=== PATIENT | female | born 1955 | race Caucasian/White ===

== ENCOUNTER 2016-12-29 10:17 | Emergency (ER) | payer OTHER, MEDICAID ==
[~2016-12-29] VITALS: Ht 165.1 cm; Wt 56.7 kg
[~2016-12-29 10:17] MED LIST: FLUO10TA PO
--- NOTE | 2016-12-29 10:22 | NUR ---
PT BIB RA COUGH AND CONGESTION. PLACED ON MONITOR. AWAITING MD ORDER.
--- NOTE | 2016-12-29 10:25 | NUR ---
DR ANTONIO AT BEDSIDE FOR EVAL
[2016-12-29] MEDS ORDERED: MORPHINE SULFATE INJ 4 MG/ML DISP.SYRIN ONE ×2 (10:29→11:59)
[2016-12-29] MEDS ORDERED: ALBUTEROL FS 2.5 MG/3 ML VIAL.NEB CONTNEB ONE (10:30)
[2016-12-29] MEDS ORDERED: MORPHINE SULFATE INJ 2 MG/ML DISP.SYRIN IM ONE ×2 (10:30→12:00)
[2016-12-29] MEDS ORDERED: IPRATROPIUM NEB FS 0.5 MG/2.5 ML AMPUL.NEB NEB ONE (10:30)
--- NOTE | 2016-12-29 10:31 | NUR ---
CALLED RT FOR BREATHING TX
[2016-12-29] MEDS ORDERED: IPRATROPIUM NEB FS 0.5 MG/2.5 ML AMPUL.NEB ONE (10:33)
[2016-12-29] MEDS ORDERED: ALBUTEROL FS 2.5 MG/3 ML VIAL.NEB ONE (10:33)
--- NOTE | 2016-12-29 11:12 | NUR ---
XRAY AT BEDSIDE
[2016-12-29 12:29] VITALS: BP 131/84
--- NOTE | 2016-12-29 12:29 | NUR ---
Patient discharged to home in stable condition. Written and verbal after care instructions given. Patient verbalizes understanding of instruction.
== END 2016-12-29 12:30 | disposition home or self-care (01) ==
LOC: ER 10:21
DX: S42.212A Unspecified displaced fracture of surgical neck of left humerus, initial encounter for closed fracture (principal); F17.200 Nicotine dependence, unspecified, uncomplicated; F32.9 Major depressive disorder, single episode, unspecified; J44.9 Chronic obstructive pulmonary disease, unspecified; W01.0XXA Fall on same level from slipping, tripping and stumbling without subsequent striking against object, initial encounter; Y93.89 Activity, other specified; Y92.89 Other specified places as the place of occurrence of the external cause; Y99.9 Unspecified external cause status
CPT/HCPCS: 71010; 73030; 94640; 96372 ×2; 99284; A4606; J2270 ×2; Z7610

== ENCOUNTER 2016-12-31 07:02 | Emergency (ER) | payer OTHER, MEDICAID ==
[~2016-12-31] VITALS: Ht 165.1 cm; Wt 56.7 kg
[2016-12-31 07:08] VITALS: BP 126/67
[2016-12-31] MEDS ORDERED: HYDROCODONE/APAP 10/325MG 1 EA TABLET ONE (07:27)
[2016-12-31] MEDS ORDERED: HYDROCODONE/APAP 10/325MG 1 EA TABLET PO ONE (07:30)
--- NOTE | 2016-12-31 08:35 | NUR ---
PROVIODED W/ SHOULDER IMMOBILIZER. PT D/C IN STABLE CONDITION.
== END 2016-12-31 08:37 | disposition home or self-care (01) ==
LOC: ER 07:06
DX: M25.511 Pain in right shoulder (principal); F32.9 Major depressive disorder, single episode, unspecified; J44.9 Chronic obstructive pulmonary disease, unspecified; F17.200 Nicotine dependence, unspecified, uncomplicated
CPT/HCPCS: A4606; Z7610